=== PATIENT | female | born 1965 | race Caucasian/White ===

== ENCOUNTER 2018-07-27 18:59 | Emergency (ER) | payer MEDICAID ==
[~2018-07-27] VITALS: Ht 157.5 cm; Wt 72.6 kg
[2018-07-27 19:43] VITALS: BP_SYST 142
[2018-07-27] MEDS ORDERED: MORPHINE 4 MG/ML INJ. SYRINGE IVP ONE ×2 (21:30→22:15)
[2018-07-27] MEDS ORDERED: LORazepam 2 MG/ML VIAL (FOR ER USE) IVP ONE (22:15)
[2018-07-27] MEDS ORDERED: fentaNYL CITRATE/PF 100 MCG/2 ML AMP IVP ONE (22:30)
[2018-07-27] MEDS ORDERED: MELA3TAB PO (23:19)
[2018-07-27] MEDS ORDERED: IBUP-1970 PO (23:19)
[2018-07-27] MEDS ORDERED: OMEP40CA33 PO (23:19)
[2018-07-27] MEDS ORDERED: FESO8TAB PO (23:19)
[2018-07-28] MEDS ORDERED: fentaNYL CITRATE/PF 100 MCG/2 ML AMP IVP ONE ×3 (01:30→06:00)
[2018-07-28] MEDS ORDERED: LORazepam 2 MG/ML VIAL (FOR ER USE) IVP ONE (07:30)
[2018-07-28] MEDS ORDERED: PROPOFOL 200MG/ 20ML VIAL (DIPRIVAN) IV ONE (08:00)
[2018-07-28 10:45] VITALS: BP_SYST 142
== END 2018-07-28 10:45 | disposition home or self-care (01) ==
LOC: SED 18:59
DX: S43.004A Unspecified dislocation of right shoulder joint, initial encounter (principal); R03.0 Elevated blood-pressure reading, without diagnosis of hypertension; Z79.899 Other long term (current) drug therapy; X50.0XXA Overexertion from strenuous movement or load, initial encounter; Y93.89 Activity, other specified; Y92.89 Other specified places as the place of occurrence of the external cause; Y99.8 Other external cause status
CPT/HCPCS: 23650; 73020; 73030; 96374; 96375; 96376; 99152; 99285; J2060 ×2; J2270; J2704; J3010 ×2; 99283

== ENCOUNTER 2019-09-11 14:22 | Emergency (ER) | payer MEDICAID ==
[~2019-09-11] VITALS: Ht 157.5 cm; Wt 79.8 kg
[~2019-09-11 14:22] MED LIST: FESO8TAB PO; IBUP-1970 PO; MELA3TAB64 PO; OMEP40CA33 PO
[2019-09-11 14:51] VITALS: BP_SYST 137
[2019-09-11 15:42] LABS: BASOPHILS # (AUTO) 0.1 K/uL (0.0-0.2); BASOPHILS % (AUTO) 0.8 % (0.0-2.0); EOSINOPHILS # (AUTO) 0.2 K/uL (0.0-0.4); EOSINOPHILS % (AUTO) 2.8 % (0.0-4.0); HEMATOCRIT 37.1 % (36-48); HEMOGLOBIN 12.7 g/dL (12.0-16.0); LYMPHOCYTES # (AUTO) 2.4 K/uL (1.0-5.5); LYMPHOCYTES % (AUTO) 31.4 % (20.5-51.5); MEAN CORPUSCULAR HEMOGLOBIN 29 pg (27-31); MEAN CORPUSCULAR HGB CONC 34 % (32-36); MEAN CORPUSCULAR VOLUME 85 fL (79.0-98.0); MONOCYTES # (AUTO) 0.4 K/uL (0.0-1.0); MONOCYTES % (AUTO) 4.5 % (1.7-9.3); NEUTROPHILS # (AUTO) 4.7 K/uL (1.8-7.7); NEUTROPHILS % (AUTO) 60.5 % (40.0-70.0); PLATELET COUNT (AUTO) 334 K/uL (130-430); RED BLOOD CELL COUNT(AUTO) 4.35 MIL/uL (4.2-6.2); RED CELL DISTRIBUTION WIDTH 14.9 % (9.0-15.0); WHITE BLOOD COUNT (AUTO) 7.8 K/uL (4.8-10.8)
--- NOTE | 2019-09-11 15:50 | NUR ---
ALL LABS ARE BACK AND NEGATIVE . CT SCANS ARE NEGATIVE.
[2019-09-11 15:52] LABS: CALCIUM 8.8 mg/dL (8.4-11.0); CREATININE 0.58 mg/dL (0.55-1.30); POTASSIUM 3.7 mmol/L (3.5-5.1)
[2019-09-11 15:56] LABS: PROTHROMBIN TIME 9.7 SECS (9.5-12.5)
[2019-09-11 15:58] LABS: ALBUMIN 3.9 g/dL (3.4-4.8); TOTAL BILIRUBIN 0.4 mg/dL (0.0-1.0)
--- NOTE | 2019-09-11 16:27 | NUR ---
Patient to ER bed 04 to gown for evaluation. Side rails up.
--- NOTE | 2019-09-11 16:30 | NUR ---
MD MATTSON AT BEDSIDE ASSESSING PT.
--- NOTE | 2019-09-11 17:00 | NUR ---
Patient given written and verbal discharge instructions and verbalizes understanding. ER MD discussed with patient the results and treatment provided. Patient in stable condition. ID arm band removed. Rx of NORCO AND MOTRIN given. Patient educated on pain management and to follow up with PMD. Pain Scale 1/10. Opportunity for questions provided and answered. Medication side effect fact sheet provided.
[2019-09-11 17:08] VITALS: BP_SYST 137
== END 2019-09-11 17:06 | disposition home or self-care (01) ==
LOC: SED 14:22
DX: R10.31 Right lower quadrant pain (principal); Z90.49 Acquired absence of other specified parts of digestive tract; Z79.899 Other long term (current) drug therapy
CPT/HCPCS: 36415; 80053; 81025; 82150-TC; 83605; 83615-TC; 83690-TC; 84703; 85025; 85610-TC; 85730-TC; 99284